=== PATIENT | male | born 1975 | race Caucasian/White ===

== ENCOUNTER → 2021-11-30 | Day surgery (SDC) | payer OTHER ==
[~2021-11-30] VITALS: Ht 170.2 cm; Wt 72.2 kg
[~2021-11-30] MED LIST: FAMO20TA5 PO; IV RINGERS,LACTATED 1000ML 1,000 ML IV SCH; OMEP20CA16 PO; PROPOFOL 10 MG/ML (20ML) VIAL. IV ONE
[2021-11-30 07:11] VITALS: BP 137/80
--- NOTE | 2021-11-30 08:22 | PDOC2 ---
CONSULT Date of Consult Date of Consult DATE: 11/30/21 TIME: 08:18 Reason for Consult Reason for Consult: Dysphagia/GERD Identification/Chief Complaint Chief Complaint 46yo Male seen with persistent dysphagia and GERD. Risk factors are positive for caffeine but negative for alcohol and nicotine. Pepcid and Prilosec have been taken without resolution of symptoms Solids stick inthe subcervical location. With the continued issues, he requests further evaluation. Past Medical History GI: GERD Past Surgical History Past Surgical History vasectomy Past Surgical History: Other Family History Family History: Hypertension Social History No ALCOHOL: none Current Medications Current Medications Current Medications Ringer's Solution 1,000 ml @ 100 mls/hr Q10H IV Last administered on 11/30/21at 07:22; Start 11/30/21 at 07:30; Stop 12/01/21 at 07:29 Propofol (Diprivan) 200 mg STK-MED ONCE IV ; Start 11/30/21 at 08:15; Stop 11/30/21 at 08:15; Status DC Active Scripts Active Reported Famotidine 20 Mg Tablet 20 Mg PO HS Omeprazole 20 Mg Capsule.dr 20 Mg PO DAILY Allergies Allergies: Coded Allergies: No Known Drug Allergies (Unverified , 11/30/21) Physical Exam General: Alert, Oriented X3 Lungs: Clear to auscultation Heart: Normal S1, Normal S2 Abdomen: Normal bowel sounds, Soft, No tenderness Vitals VITALS Vital Signs Date Time Temp Pulse Resp B/P (MAP) Pulse Ox O2 Delivery O2 Flow Rate FiO2 11/30/21 07:11 97.6 57 16 100 97.6 Labs Labs Laboratory Tests Test 11/30/21 07:00 POC SARS CoV-2 Antigen Negative (NEGATIVE) Laboratory Tests Test 11/30/21 07:00 POC SARS CoV-2 Antigen Negative (NEGATIVE) Assessment/Plan Assessment/Plan Dysphagia- with GERD. Differential includes: Schatzki ring, malignancy, Condon's, eosinophilic esophagitis, and/or achalasia. Plan EGD with possible biopsy and/or dilation LAURIE MARKS MD Nov 30, 2021 08:22
[2021-11-30 08:55] VITALS: BP 121/72
--- NOTE | 2021-12-01 14:11 | PATHOLOGY ---
[facility] Accession Number: [id number] . 01 Material submitted: . esophagus - DISTAL ESOPHAGUS BIOPSY. Modifiers: distal . 01 Clinical history: . DYSPHAGIA INTRACTABLE GERD . 02 Diagnosis: Esophageal biopsies, distal esophagus: - Reflux changes. (JPM:joe; 12/01/2021) S 12/01/2021 0919 Local . 02 Comment: Sections of the distal esophageal biopsy reveal segments of tangentially oriented hyperplastic squamous esophageal mucosa. The findings are consistent with reflux esophagitis. There is no evidence of Condon's change, dysplasia, or malignancy. (JPM:joe; 12/01/2021) . 02 Electronically signed: . Erik Roque MD, Pathologist NPI- [id number] . 01 Gross description: . The specimen is received in formalin, labeled "Luis Sanchez, distal esophagus biopsy". Received are four segments of pale geller tissue ranging in size from 0.3-0.5 cm is in maximum dimensions. The specimen is submitted entirely in cassette A1. (CAA; 11/30/2021) QAC/QAC 11/30/2021 1541 Local . 02 Pathologist provided ICD-10: K21.9 . 02 CPT . 911730 Specimen Comment: A courtesy copy of this report has been sent to [phone] Specimen Comment: [id number] Specimen Comment: Report sent to / DR ROA Specimen Comment: A duplicate report has been generated due to demographic updates. Performed at: 01 [facility] [address], [place], [place] [id number] MD Daniel Medeiros MD Phone: [phone] Performed at: [facility] [address] [place], [place] [id number] MD Erik Roque MD Phone: [phone]
== END | disposition home or self-care (01) ==
LOC: ENDOS 09:52
PROVIDERS: ATTEND Internal Medicine Gastroenterology
DX: R13.10 Dysphagia, unspecified (principal); K21.00 Gastro-esophageal reflux disease with esophagitis, without bleeding; K31.89 Other diseases of stomach and duodenum; Z79.899 Other long term (current) drug therapy; Z98.890 Other specified postprocedural states
CPT/HCPCS: 43239; 43450; J2704